=== PATIENT | female | born 1955 | race Caucasian/White ===

== ENCOUNTER → 2019-12-18 10:22 | Outpatient (CLI) | payer BC, SELFPAY ==
[2019-12-21 21:15] LABS: HPV APTIMA, High Risk Negative (Negative)
[2019-12-21 21:16] LABS: HPV Reflexed? YES, CHARGE PATIENT
== END ==
PROVIDERS: Visit Provider Student in an Organized Health Care Education/Training Program
DX: Z12.4 Encounter for screening for malignant neoplasm of cervix (principal)
CPT/HCPCS: 87624; 88175; G0145

== ENCOUNTER → 2022-02-22 | Outpatient (CLI) | payer OTHER, MEDICARE, SELFPAY ==
[2022-02-26 16:34] LABS: HPV APTIMA, High Risk Negative (Negative)
== END | disposition home or self-care (01) ==
LOC: LABSPEC 09:38
PROVIDERS: Visit Provider Student in an Organized Health Care Education/Training Program
DX: Z01.419 Encounter for gynecological examination (general) (routine) without abnormal findings (principal)
CPT/HCPCS: 87624; 88175; G0145